=== PATIENT | female | born 1955 | race Caucasian/White ===

== ENCOUNTER 2017-04-23 03:23 | Inpatient (IN) | payer OTHER, MEDICAID ==
[~2017-04-23] VITALS: Ht 160 cm; Wt 104.9 kg
[~2017-04-23 03:23] MED LIST: ALBU8.5H5 INH; BUDE10.2 INH; HYDR25TA6 PO; PARO40TA45 PO; PRED20TA PO
[2017-04-23] MEDS ORDERED: SODIUM CHLORIDE 0.9% 1,000ML IV ONE (04:00)
[2017-04-23] MEDS ORDERED: ONDANSETRON 2MG/ML, 2ML IVPush ONE ×2 (04:00→05:00)
[2017-04-23] MEDS ORDERED: HYDROmorphone 1 MG/ML, 1ML IVPush PRN (04:00)
[2017-04-23] MEDS ORDERED: KETOROLAC 30 MG/1 ML IVPush ONE (04:00)
[2017-04-23] MEDS ORDERED: ALPR-475 PO (04:06)
[2017-04-23] MEDS ORDERED: LISI40TA PO (04:07)
[2017-04-23] MEDS ORDERED: HYDROmorphone 1 MG/ML, 1ML ONE (04:09)
[2017-04-23] MEDS ORDERED: KETOROLAC 30 MG/1 ML ONE (04:09)
[2017-04-23] MEDS ORDERED: ONDANSETRON 2MG/ML, 2ML ONE ×2 (04:10→04:48)
[2017-04-23 05:25] LABS: BLOOD UREA NITROGEN 22 mg/dL (7-18)
[2017-04-23 05:35] LABS: ASPARTATE AMINO TRANSFERASE 17 U/L (15-37)
[2017-04-23] MEDS ORDERED: PROCHLORPERAZINE 5 MG/ML, 2ML ONE ×2 (05:40→05:47)
[2017-04-23] MEDS ORDERED: FAMOTIDINE 20 MG/2 ML IVPush ONE (06:00)
[2017-04-23] MEDS ORDERED: PROCHLORPERAZINE 5 MG/ML, 2ML IVPush ONE (06:00)
[2017-04-23] MEDS ORDERED: FAMOTIDINE 20 MG/2 ML ONE (06:11)
[2017-04-23] MEDS ORDERED: SODIUM CHLORIDE 0.9% 1,000ML IVBOLUS ONE (07:00)
[2017-04-23] MEDS ORDERED: METOCLOPRAMIDE 5 MG/ML, 2ML IVPush PRN (10:00)
[2017-04-23] MEDS ORDERED: LABETALOL 5MG/ML, 20ML IVPush PRN (10:00)
[2017-04-23] MEDS ORDERED: MORPHINE SULFATE 4 MG/ML, 1ML IVPush PRN (10:00)
[2017-04-23] MEDS ORDERED: ACETAMINOPHEN 325 MG TABLET PO PRN (10:00)
[2017-04-23] MEDS ORDERED: LORazepam 2 MG/ML, 1ML IVPush PRN (10:00)
[2017-04-23] MEDS: SODIUM CHLORIDE 0.9% 1,000 ML IV SCH ×2 (11:00→20:59)
[2017-04-23] MEDS: ENOXAPARIN 40 MG/0.4 ML SQ SCH (11:01)
[2017-04-23] MEDS ORDERED: NICOTINE 14MG/24 HR PATCH.TD24 TD ONE (12:00)
[2017-04-23] MEDS: CEFTRIAXONE PMX 1GM/50ML 50 ML IV SCH (12:30)
[2017-04-23 13:48] VITALS: BP 129/72
[2017-04-23] MEDS: ALBUTEROL/IPRATROPIUM 2.5MG/0.5MG, 3 ML NPPB PRN (13:57)
[2017-04-23 19:30] VITALS: BP 149/76
[2017-04-24 01:48] VITALS: BP 164/82
[2017-04-24] MEDS: ONDANSETRON 2MG/ML, 2ML IVPush PRN ×2 (01:52→07:46)
[2017-04-24] MEDS: ALBUTEROL/IPRATROPIUM 2.5MG/0.5MG, 3 ML NPPB PRN ×3 (02:02→21:29)
[2017-04-24 04:47] LABS: BLOOD UREA NITROGEN 13 mg/dL (7-18)
[2017-04-24 04:59] LABS: ASPARTATE AMINO TRANSFERASE 17 U/L (15-37)
[2017-04-24] MEDS: SODIUM CHLORIDE 0.9% 1,000 ML IV SCH ×2 (06:07→21:30)
[2017-04-24 06:59] VITALS: BP 124/72
[2017-04-24] MEDS ORDERED: MAGNESIUM SULFATE PMX 2GM/50ML 50 ML IV ONE (10:00)
[2017-04-24] MEDS: METOCLOPRAMIDE 5 MG/ML, 2ML IVPush SCH ×3 (11:09→22:04)
[2017-04-24] MEDS: ENOXAPARIN 40 MG/0.4 ML SQ SCH (11:09)
[2017-04-24] MEDS: CEFTRIAXONE PMX 1GM/50ML 50 ML IV SCH (12:02)
[2017-04-24 12:54] VITALS: BP 144/72
[2017-04-24] MEDS ORDERED: METOCLOPRAMIDE 5 MG/ML, 2ML IVPush SCH ×2 (16:00)
[2017-04-24 18:54] VITALS: BP 130/81
[2017-04-25 03:38] VITALS: BP 162/84
[2017-04-25] MEDS: METOCLOPRAMIDE 5 MG/ML, 2ML IVPush SCH ×4 (03:53→21:08)
[2017-04-25 04:47] LABS: BLOOD UREA NITROGEN 6 mg/dL (7-18)
[2017-04-25] MEDS: SODIUM CHLORIDE 0.9% 1,000 ML IV SCH ×2 (06:00→16:02)
[2017-04-25 06:48] VITALS: BP 163/77
[2017-04-25] MEDS: MAGNESIUM OXIDE 400 MG TABLET PO SCH (09:10)
[2017-04-25] MEDS: ENOXAPARIN 40 MG/0.4 ML SQ SCH (09:10)
[2017-04-25] MEDS: ALBUTEROL/IPRATROPIUM 2.5MG/0.5MG, 3 ML NPPB PRN ×2 (09:25→21:20)
[2017-04-25] MEDS: PHENAZOPYRIDINE 200 MG TABLET PO SCH ×3 (10:25→21:34)
[2017-04-25 12:41] VITALS: BP 156/81
[2017-04-25] MEDS: CEFTRIAXONE PMX 1GM/50ML 50 ML IV SCH (13:15)
[2017-04-25 19:55] VITALS: BP 169/90
[2017-04-26 02:17] VITALS: BP 146/73
[2017-04-26] MEDS: SODIUM CHLORIDE 0.9% 1,000 ML IV SCH ×3 (02:25→16:00)
[2017-04-26] MEDS: METOCLOPRAMIDE 5 MG/ML, 2ML IVPush SCH ×4 (04:05→21:00)
[2017-04-26 05:33] LABS: BLOOD UREA NITROGEN 3 mg/dL (7-18)
[2017-04-26 07:56] VITALS: BP 154/87
[2017-04-26] MEDS: LISINOPRIL 20 MG TABLET PO SCH (08:58)
[2017-04-26] MEDS: PHENAZOPYRIDINE 200 MG TABLET PO SCH ×3 (08:58→21:00)
[2017-04-26] MEDS: MAGNESIUM OXIDE 400 MG TABLET PO SCH (09:56)
[2017-04-26] MEDS: ENOXAPARIN 40 MG/0.4 ML SQ SCH (09:56)
[2017-04-26] MEDS: CEFTRIAXONE PMX 1GM/50ML 50 ML IV SCH (12:34)
[2017-04-26 14:47] VITALS: BP 157/76
[2017-04-26] MEDS ORDERED: MORPHINE SULFATE 4 MG/ML, 1ML IVPush PRN (16:00)
[2017-04-26] MEDS ORDERED: ACETAMINOPHEN 325 MG TABLET PO PRN (16:00)
[2017-04-26] MEDS ORDERED: OMNIPAQUE 350 MG/ML, 100ML BOTTLE ONE (18:41)
[2017-04-26 19:23] VITALS: BP 166/83
[2017-04-26] MEDS ORDERED: DIPHENHYDRAMINE 50 MG/ML, 1ML IVPush ONE (19:30)
[2017-04-26] MEDS: ALBUTEROL/IPRATROPIUM 2.5MG/0.5MG, 3 ML NPPB PRN (19:52)
[2017-04-27 01:18] VITALS: BP 138/70
[2017-04-27] MEDS: SODIUM CHLORIDE 0.9% 1,000 ML IV SCH ×3 (01:27→22:00)
[2017-04-27] MEDS: METOCLOPRAMIDE 5 MG/ML, 2ML IVPush SCH ×3 (04:05→22:00)
[2017-04-27 04:43] LABS: BLOOD UREA NITROGEN 6 mg/dL (7-18)
[2017-04-27 04:46] LABS: ASPARTATE AMINO TRANSFERASE 17 U/L (15-37)
[2017-04-27] MEDS: LISINOPRIL 20 MG TABLET PO SCH (09:30)
[2017-04-27] MEDS: ENOXAPARIN 40 MG/0.4 ML SQ SCH (10:00)
[2017-04-27] MEDS ORDERED: metroNIDAZOLE 500 MG TABLET PO SCH (11:15)
[2017-04-27] MEDS: ONDANSETRON 2MG/ML, 2ML IVPush PRN (12:05)
[2017-04-27] MEDS: CEFTRIAXONE PMX 1GM/50ML 50 ML IV SCH (12:15)
[2017-04-27] MEDS: MAGNESIUM OXIDE 400 MG TABLET PO SCH (12:40)
[2017-04-27] MEDS: METRONIDAZOLE PMX 500MG/100ML 100 ML IV SCH (16:00)
[2017-04-27] MEDS: PHENAZOPYRIDINE 200 MG TABLET PO SCH ×2 (16:00→21:00)
[2017-04-27] MEDS: LACTOBACILLUS CHEW TABLET PO SCH (21:00)
[2017-04-28] MEDS: METOCLOPRAMIDE 5 MG/ML, 2ML IVPush SCH ×5 (04:00→21:50)
[2017-04-28] MEDS: METRONIDAZOLE PMX 500MG/100ML 100 ML IV SCH ×4 (06:00→22:22)
[2017-04-28 06:35] VITALS: BP 168/81
[2017-04-28 08:00] VITALS: BP 168/81
[2017-04-28] MEDS: SODIUM CHLORIDE 0.9% 1,000 ML IV SCH ×2 (08:00→18:00)
[2017-04-28] MEDS: PHENAZOPYRIDINE 200 MG TABLET PO SCH ×4 (09:00→21:00)
[2017-04-28] MEDS: LISINOPRIL 20 MG TABLET PO SCH (09:00)
[2017-04-28] MEDS: LACTOBACILLUS CHEW TABLET PO SCH ×3 (09:00→21:51)
[2017-04-28] MEDS: ENOXAPARIN 40 MG/0.4 ML SQ SCH (10:00)
[2017-04-28] MEDS ORDERED: SINCALIDE (KINEVAC) 5 MCG ONE (10:20)
[2017-04-28] MEDS: MAGNESIUM OXIDE 400 MG TABLET PO SCH (12:40)
[2017-04-28 17:07] VITALS: BP 168/81
[2017-04-28 17:10] VITALS: BP 112/71
[2017-04-28] MEDS: CEFTRIAXONE PMX 1GM/50ML 50 ML IV SCH (17:10)
[2017-04-28 19:09] VITALS: BP 154/74
[2017-04-28] MEDS: ONDANSETRON 2MG/ML, 2ML IVPush PRN (22:51)
[2017-04-29] VITALS (7 sets, daily range): BP systolic 145–185; BP diastolic 65–110
[2017-04-29] MEDS: SODIUM CHLORIDE 0.9% 1,000 ML IV SCH ×2 (02:01→19:50)
[2017-04-29 05:05] LABS: BLOOD UREA NITROGEN 6 mg/dL (7-18)
[2017-04-29] MEDS: METOCLOPRAMIDE 5 MG/ML, 2ML IVPush SCH ×4 (05:36→22:04)
[2017-04-29] MEDS: METRONIDAZOLE PMX 500MG/100ML 100 ML IV SCH ×3 (05:37→22:05)
[2017-04-29] MEDS ORDERED: ACID1TAB7 PO (08:25)
[2017-04-29] MEDS ORDERED: CEFD300C37 PO (08:25)
[2017-04-29] MEDS ORDERED: PHEN-494 PO (08:25)
[2017-04-29] MEDS ORDERED: MAGN400T26 PO (08:25)
[2017-04-29] MEDS ORDERED: TRAM50TA2 PO (08:25)
[2017-04-29] MEDS ORDERED: METR500T PO (08:25)
[2017-04-29] MEDS: ENOXAPARIN 40 MG/0.4 ML SQ SCH (10:00)
[2017-04-29] MEDS: LACTOBACILLUS CHEW TABLET PO SCH ×2 (10:14→19:49)
[2017-04-29] MEDS: ENALAPRILAT 1.25 MG/ML, 2ML IVPush PRN ×2 (10:15→17:05)
[2017-04-29] MEDS: LISINOPRIL 20 MG TABLET PO SCH (10:15)
[2017-04-29] MEDS: PHENAZOPYRIDINE 200 MG TABLET PO SCH ×3 (10:15→19:49)
[2017-04-29] MEDS: MAGNESIUM OXIDE 400 MG TABLET PO SCH (10:15)
[2017-04-29] MEDS: CEFTRIAXONE PMX 1GM/50ML 50 ML IV SCH (14:17)
[2017-04-29] MEDS: LABETALOL 5MG/ML, 20ML IVPush PRN ×2 (14:17→19:52)
[2017-04-29] MEDS ORDERED: HYDR25TA6 PO (16:05)
[2017-04-29] MEDS ORDERED: HYDROCHLOROTHIAZIDE 12.5 MG CAPSULE PO ONE (17:00)
[2017-04-29] MEDS: ONDANSETRON 2MG/ML, 2ML IVPush PRN (20:05)
[2017-04-30] MEDS ORDERED: VALGANCICLOVIR 450MG TABLET PO SCH (00:30)
[2017-04-30 01:55] VITALS: BP 150/78
[2017-04-30] MEDS: SODIUM CHLORIDE 0.9% 1,000 ML IV SCH (05:20)
[2017-04-30] MEDS: METOCLOPRAMIDE 5 MG/ML, 2ML IVPush SCH ×3 (05:21→16:11)
[2017-04-30] MEDS: METRONIDAZOLE PMX 500MG/100ML 100 ML IV SCH (05:21)
[2017-04-30 07:49] VITALS: BP 135/80
[2017-04-30] MEDS ORDERED: HYDROCHLOROTHIAZIDE 12.5 MG CAPSULE PO SCH (09:00)
[2017-04-30] MEDS: ENOXAPARIN 40 MG/0.4 ML SQ SCH (10:00)
[2017-04-30] MEDS: LACTOBACILLUS CHEW TABLET PO SCH (11:31)
[2017-04-30] MEDS: MAGNESIUM OXIDE 400 MG TABLET PO SCH (11:31)
[2017-04-30] MEDS: LISINOPRIL 20 MG TABLET PO SCH (11:32)
[2017-04-30] MEDS: PHENAZOPYRIDINE 200 MG TABLET PO SCH ×2 (11:32→16:00)
[2017-04-30] MEDS: VALACYCLOVIR 500MG TABLET PO SCH ×2 (11:32→16:12)
[2017-04-30 12:20] VITALS: BP 145/75
[2017-04-30 13:35] VITALS: BP 151/90
[2017-04-30] MEDS ORDERED: ONDA4TAB7 PO (14:56)
[2017-04-30] MEDS ORDERED: VALA500T PO (14:56)
[2017-04-30] MEDS: CEFTRIAXONE PMX 1GM/50ML 50 ML IV SCH (16:06)
[2017-05-01 11:59] LABS: BLOOD UREA NITROGEN 7 mg/dL (7-18)
== END 2017-04-30 18:51 | disposition home or self-care (01) | DRG 690 ==
LOC: ED 05:39 → EDIP 06:50 → 3NW 08:31
PROVIDERS: ADMIT Internal Medicine; ATTEND Internal Medicine
PROC: 0T9B70Z Drainage of Bladder with Drainage Device, Via Natural or Artificial Opening (ICD-10-PCS; principal; 2017-04-23)
DX: N12 Tubulo-interstitial nephritis, not specified as acute or chronic (principal); K57.92 Diverticulitis of intestine, part unspecified, without perforation or abscess without bleeding; I10 Essential (primary) hypertension; J44.9 Chronic obstructive pulmonary disease, unspecified; F17.210 Nicotine dependence, cigarettes, uncomplicated; E83.42 Hypomagnesemia; B02.9 Zoster without complications; K57.90 Diverticulosis of intestine, part unspecified, without perforation or abscess without bleeding; F32.9 Major depressive disorder, single episode, unspecified; F41.9 Anxiety disorder, unspecified; Z88.5 Allergy status to narcotic agent
CPT/HCPCS: 36415; 74176; 74177; 78227; 80048; 80053; 81001; 83690; 83735; 84100; 84443; 85025; 87086; 94640; 96361; 96374; 96375; 96376; J0696; J1170; J1650; J1885; J2405; J7620; Q9967; A9537; C9898; J0780; J1200; J2060; J2765; J2805; J3475; J7030; S0028

== ENCOUNTER 2017-09-06 11:27 | Emergency (ER) | payer OTHER, MEDICAID ==
[~2017-09-06] VITALS: Ht 160 cm; Wt 104.7 kg
[~2017-09-06 11:27] MED LIST changes: +ACID1TAB7 PO; +ALPR-475 PO; +CEFD300C37 PO; +LISI40TA PO; +MAGN400T26 PO; +METR500T PO; +ONDA4TAB7 PO; -PARO40TA45 PO; +PARO40TA61 PO; +PHEN-583 PO; +TRAM50TA2 PO; +VALA500T PO
[2017-09-06] MEDS ORDERED: PROPARACAINE OPHTH 0.5%, 15ML ONE (12:14)
[2017-09-06 12:29] VITALS: BP 162/89
[2017-09-06] MEDS ORDERED: CYCLOPENTOLATE OPHTH SOLN 1%, 15ML LEFTEYE ONE (12:30)
== END 2017-09-06 13:20 | disposition home or self-care (01) ==
LOC: ED 12:39
DX: H21.02 Hyphema, left eye (principal); I10 Essential (primary) hypertension; J44.9 Chronic obstructive pulmonary disease, unspecified
CPT/HCPCS: 93005; 99283